=== PATIENT | female | born 1960 ===

== ENCOUNTER 2018-11-22 05:16 | Inpatient (IN) | payer MEDICAID ==
[2018-11-15 10:02] LABS: APPEARANCE,URINE CLEAR; BILIRUBIN, URINE NEGATIVE (NEGATIVE); COLOR,URINE PALE YELLOW; GLUCOSE, URINE (UA) NEGATIVE (NEGATIVE); KETONES,URINE NEGATIVE (NEGATIVE); LEUKOCYTE ESTERASE ,URINE NEGATIVE (NEGATIVE); NITRITE,URINE NEGATIVE (NEGATIVE); PH,URINE 6 (4.5-8.0); PROTEIN,URINE NEGATIVE (NEGATIVE); UROBILINOGEN,URINE NORMAL MG/DL (0.0-1.0)
[2018-11-15 10:07] LABS: BASOPHILS % (AUTO) 0.9 % (0.0-2.0); EOSINOPHILS % (AUTO) 1.5 % (0.0-3.0); HEMATOCRIT 42.8 % (37.0-47.0); HEMOGLOBIN 13.8 G/DL (12.0-16.0); LYMPHOCYTES % (AUTO) 35.3 % (20.0-45.0); MEAN CORPUSCULAR VOLUME 93 FL (80-99); MONOCYTES % (AUTO) 5.5 % (1.0-10.0); NEUTROPHILS % (AUTO) 56.8 % (45.0-75.0); PLATELET COUNT 322 K/UL (150-450); RED CELL DISTRIBUTION WIDTH 11.8 % (11.6-14.8)
[2018-11-15 10:11] LABS: INR 0.9 (0.9-1.1)
[2018-11-15 10:36] LABS: ANION GAP 9 mmol/L (5-15); BLOOD UREA NITROGEN 10 mg/dL (7-18); CALCIUM 9.2 MG/DL (8.5-10.1); CARBON DIOXIDE 29 MMOL/L (21-32); CHLORIDE 104 MMOL/L (98-107); CREATININE 0.8 MG/DL (0.55-1.30); POTASSIUM 4.3 MMOL/L (3.5-5.1); SODIUM 142 MMOL/L (136-145)
--- NOTE | 2018-11-15 11:44 | Diagnostic Imaging Report ---
Indication: Cough Technique: 2 views of the chest Comparison: None Findings: Lungs and pleural spaces are clear. The heart size is normal. The bones are unremarkable. Impression: Negative
--- NOTE | 2018-11-18 16:45 | Pre-op HX & Phy Repo 2 SIG ---
DATE OF ADMISSION: 11/22/2018 DATE OF PLANNED SURGERY: Scheduled for surgery on 11/22/2018. HISTORY OF PRESENT ILLNESS: The patient is a 58-year-old female in overall good health with invasive ductal carcinoma of the right breast. The patient presented recently with a recent onset of a right breast mass. She has no prior history of breast disease and no family history of breast cancer. Mammogram and ultrasound revealed a suspicious irregular mass at 10 o'clock approximately 13 cm from the nipple measuring 1.6 x 1.2 x 1.7 cm. Core biopsy revealed invasive ductal carcinoma, poorly differentiated. She is triple negative; estrogen receptor, progesterone receptor and HER2 negative. Ki-67 was high at 65%. The patient underwent oncology consultation, who recommended proceeding with surgery and determining the need for subsequent treatment based on final pathology. The patient is scheduled to undergo right breast partial mastectomy and right axillary lymph node biopsy. MEDICATIONS: Metoprolol 25 mg daily. ALLERGIES: None. OPERATIONS: None. REVIEW OF SYSTEMS: 1, para 1. Last menstrual period 2015. PHYSICAL EXAMINATION: GENERAL: The patient is 5 feet 5 inches, 212 pounds. VITAL SIGNS: Within normal limits. HEENT: Within normal limits. LUNGS: Clear. HEART: Regular rhythm. BREASTS: Large and ptotic. Right breast, in the very periphery of the upper outer quadrant, there is a 2 cm hard mass not fixed to the chest wall. The left breast is unremarkable. There is no palpable axillary or supraclavicular lymphadenopathy. ABDOMEN: Soft. PELVIC AND RECTAL: Per primary care. EXTREMITIES: Without edema. NEUROLOGIC: Physiologic. IMPRESSION: Invasive ductal carcinoma, right breast. PLAN: Right breast partial mastectomy and right axillary lymph node biopsy. I have had a full discussion with the patient regarding the nature of condition, the nature of the surgery, indications, alternatives, options, and risks including bleeding, infection, need for additional surgery or subsequent treatments with chemotherapy or radiation or hormonal based on final pathology, scarring and distortion of the breast or nipple, etc. All questions have been answered. The patient understands and agrees to proceed. Gómez Masters M.D. DR: BLAS JOB#: [id number] CC:
--- NOTE | 2018-11-20 15:18 | Cardiology Report ---
APPROVED REPORT EKG Measurement Heart [id number] NM [id number] Sinus bradycardia Right bundle branch block Abnormal ECG
[2018-11-22] VITALS (15 sets, daily range): BP systolic 133–153; BP diastolic 62–88
[~2018-11-22] VITALS: Ht 157.5 cm; Wt 94.8 kg
[2018-11-22] MEDS ORDERED: METOPROLOL TART25 MG ORAL (06:01)
[2018-11-22] MEDS ORDERED: Midazolam 2mg/2ml Inj ONE (07:11)
[2018-11-22] MEDS ORDERED: fentaNYL 100 mcg/2 mL IV ONE (07:11)
[2018-11-22] MEDS ORDERED: Propofol 200mg/20ml IV ONE ×2 (07:12→09:05)
[2018-11-22] MEDS ORDERED: Lidocaine 1% MPF 10mg/ml 5ml ONE (07:12)
[2018-11-22] MEDS ORDERED: Lidocaine 1% 10mg/ml/Epi 0.005mg/ml 30ml vial INJ ONE (07:16)
[2018-11-22] MEDS ORDERED: Bacitracin 50000 Units Vial ONE (07:16)
[2018-11-22] MEDS ORDERED: Bupivacaine w/Epi 0.5% 30ml Vial INJ ONE (07:16)
[2018-11-22] MEDS ORDERED: Bupivacaine 0.5% Inj 30 ml vial INJ ONE (07:16)
[2018-11-22] MEDS ORDERED: Succinylcholine 20mg/ml 10ml vial ONE (07:20)
[2018-11-22] MEDS ORDERED: Zemuron 50mg/5ml Inj IV ONE (07:20)
--- NOTE | 2018-11-22 07:22 | Pre-Procedure Note/Attestation ---
Pre-Procedure Note/Attestation Complete Prior to Procedure Planned Procedure: right Procedure Narrative: re-excision carcinoma right breast and right axillary lymph node biopsy Indications for Procedure Pre-Operative Diagnosis: invasive ductal carcinoma right breast Attestation I attest that I discussed the nature of the procedure; its benefits; risks and complications; and alternatives (and the risks and benefits of such alternatives ), prior to the procedure, with the patient (or the patient's legal associate financial representative). I attest that, if there was a reasonable possibility of needing a blood transfusion, the patient (or the patient's legal associate financial representative) was given the [facility] standardized written summary, pursuant to the Silverio Magnus Blood Safety Act ([place] Health and Safety Code # 1645, as amended). I attest that I re-evaluated the patient just prior to the surgery and that there has been no change in the patient's H&P, except as documented below:none Gómez Masters MD Nov 22, 2018 07:22
[2018-11-22] MEDS ORDERED: NS Irrig 1000ml IRRIG ONE (08:18)
[2018-11-22] MEDS ORDERED: LR 1000ml 1,000 ML IVLG SCH (08:27)
--- NOTE | 2018-11-22 08:27 | Anethesia Preoperative Eval ---
Anesthesia Pre-op PMH/ROS General Date of Evaluation: Nov 22, 2018 Time of Evaluation: 07:12 Anesthesiologist: Luann ASA Score: ASA 2 Mallampati Score Class I : Soft palate, uvula, fauces, pillars visible Class II: Soft palate, uvula, fauces visible Class III: Soft palate, base of uvula visible Class IV: Only hard plate visible Mallampati Classification: Class II Surgeon: Sonam Diagnosis: R breast CA Surgical Procedure: Partial mastectomy Anesthesia History: none Family History: no anesthesia problems Allergies: Coded Allergies: IBUPROFEN (Verified Allergy, Severe, 11/22/18) skin rash,vomiting Medications: see eMAR Patient NPO?: Yes NPO Date: Nov 21, 2018 NPO Time: 2129 Past Medical History Cardiovascular: Reports: HTN; Denies: CAD, CA, valve dz, arrhythmia, other Pulmonary: Denies: asthma, COPD, AFSHIN, other Gastrointestinal/Genitourinary: Reports: GERD; Denies: CRI, ESRD, other Neurologic/Psychiatric: Reports: depression/anxiety; Denies: dementia, CVA, TIA, other Endocrine: Denies: DM, hypothyroidism, steroids, other HEENT: Denies: cataract (L), cataract (R), glaucoma, [place] (L), [place] (R), other Hematology/Immune: Denies: anemia, DVT, bleeding disorder, other Musculoskeletal/Integumentary: Denies: OA, RA, DJD, DDD, edema, other Other: obesity PMH Narrative: as above PSxH Narrative: Abdominoplasty Anesthesia Pre-op Phys. Exam Physician Exam Last Vital Signs Date Time Temp Pulse Resp B/P (MAP) Pulse Ox O2 Delivery O2 Flow Rate FiO2 11/22/18 06:01 98.0 62 20 145/62 (89) 95 11/22/18 05:57 Room Air Constitutional: NAD Neurologic: CN 2-12 intact Cardiovascular: RRR, no M/R/G Respiratory: CTA Gastrointestinal: other - obesity Airway Exam Mallampati Score: Class II MO: full Neck: flexible ROM: full Teeth: intact Dentures: no upper, no lower Anesthesia Pre-op A/P Labs see chart Studies Pre-op Studies: EKG - NSR Risk Assessment & Plan Assessment: ASA 2 Plan: GA with ETT Pre-Antibiotics Drug: Ancef 2gr. Given Within 1 Hr of Incision: Yes Time Given: 08:14 Dima Kong MD Nov 22, 2018 08:27
[2018-11-22] MEDS ORDERED: Meperidine 50mg/ml Inj(FOR RIGORS ONLY) IV PRN (08:30)
[2018-11-22] MEDS ORDERED: Metoclopramide 10mg/2ml Inj IVP PRN (08:30)
[2018-11-22] MEDS ORDERED: Ketorolac 30mg Inj IV PRN (08:30)
[2018-11-22] MEDS ORDERED: Hydromorphone 0.5mg/0.5ml inj IVP PRN (08:30)
[2018-11-22] MEDS ORDERED: DiphenhydrAMINE 50mg/ml Inj IVP PRN (08:30)
[2018-11-22] MEDS ORDERED: Morphine Sulfate 10mg/ml Inj ONE (08:30)
[2018-11-22] MEDS ORDERED: Glycopyrrolate 0.2mg/ml 1ml Vial ONE (08:31)
[2018-11-22] MEDS ORDERED: Sodium Chloride 10ml vial INJ ONE ×2 (08:31→08:45)
[2018-11-22] MEDS ORDERED: ePHEDrine 50mg/ml Inj ONE (08:45)
[2018-11-22] MEDS ORDERED: HYDROmorphone 1mg/ml Carpuject SUBQ PRN (09:15)
[2018-11-22] MEDS ORDERED: HYDROcodone/Acetamin 5/325 tab ORAL PRN (09:15)
--- NOTE | 2018-11-22 09:23 | Brief Operative Note ---
Immediate Post Operative Note Operative Note Pre-op Diagnosis: invasive ductal carcinoma right breast Procedure: right breast partial mastectomy and right axillary lymph node biopsy Post-op Diagnosis: same Post-op Diagnosis: same as pre-op Findings: consistent w/pre-op dx studies Surgeon: cathy Anesthesiologist: karen Anesthesia: general Specimen: yes - right breast cancer, right axillary lymph nodes Complications: none Condition: stable Fluids: see anesthesia record Estimated Blood Loss: volume - 10cc Drains: DANNA Implant(s) used?: No Gómez Masters MD Nov 22, 2018 09:23
--- NOTE | 2018-11-22 09:36 | Immediate Post-Op Evaluation ---
Immediate Post-Op Evalulation Immediate Post-Op Evalulation Procedure: R breast partial mastectomy with axillary l/n dissection Date of Evaluation: Nov 22, 2018 Time of Evaluation: 09:35 IV Fluids: 1000 Blood Products: none Estimated Blood Loss: 50 Urinary Output: none Blood Pressure Systolic: 146 Blood Pressure Diastolic: 76 Pulse Rate: 68 Respiratory Rate: 20 O2 Sat by Pulse Oximetry: 98 Temperature (Fahrenheit): 97.6 Pain Score (1-10): 2 Nausea: No Vomiting: No Complications none Patient Status: reacts, patent, extubated, none Hydration Status: adequate Dima Kong MD Nov 22, 2018 09:36
--- NOTE | 2018-11-22 10:35 | NUR ---
NURSE NOTES: Patient came to the unit. Received report from Edith Boyd, GRAPHIC MANAGER. Pt is a/o x 4, in bed, Beninese speaking, daughter is at bedside. No respiratory distress noted. Denies any pain at this time. Rt breast surgical dressing is C/D/I. DANNA drain is in place on right site. Rt foot IV is patent. Unit orientation was given. Questions answered. Bed in lowest position, call light within reach. Will continue to monitor.
--- NOTE | 2018-11-22 11:15 | Operative Note - Dictated ---
DATE OF OPERATION: 11/22/2018 SURGEON: Gómez Masters M.D. COOPER APPRENTICE: None. ANESTHESIOLOGIST: Dima Kong M.D. TYPE OF ANESTHESIA: General. PREOPERATIVE DIAGNOSIS: Invasive ductal carcinoma, right breast. POSTOPERATIVE DIAGNOSIS: Invasive ductal carcinoma, right breast. OPERATION PERFORMED: Right breast partial mastectomy and right axillary lymph node biopsy. DESCRIPTION OF PROCEDURE: The patient was taken to the operating room and under general anesthesia with sequential compression device stockings in place, she was prepped and draped in the usual fashion. The approximate 2 cm carcinoma mass was located in the very periphery of the upper outer quadrant at 10 o'clock. A radial incision was made achieving hemostasis with cautery. Flaps were dissected circumferentially. A wide excision was performed orienting the specimen with sutures anterior, superior, and medial. The lesion was right at the axillary tail and axilla and two lymph glands were removed with the specimen confirmed by pathology to confirm clear margins. Palpation revealed another abnormal axillary lymph node, which I resected using the Thunderbeat electrosurgical device without making a separate axillary skin incision. Hemostasis was carefully achieved. The field was irrigated through a stab incision inferiorly, a large Wilson-Tabares drain was placed into the axilla and sutured the skin with 2-0 nylon skin suture. The axilla and breast romero were irrigated and hemostasis was secured with cautery. The incision was closed with interrupted 3-0 Vicryl deep dermal subcutaneous sutures followed by continuous 4-0 Monocryl subcuticular suture. Mastisol and half-inch Steri-Strips were applied followed by dry sterile dressing. Final sponge and needle counts were correct. The patient tolerated the procedure well and left the operating room in good condition. Gómez Masters M.D. DR: JENNIFER JOB#: [id number] CC:
--- NOTE | 2018-11-22 11:25 | NUR ---
NURSE NOTES: Patient ambulated with assistance to go to bathroom. Pt urinated. Pt in stable condition.
[2018-11-22] MEDS: D5 1/2NS w/KCl 20mEq 1,000 ML IV SCH ×2 (13:49→21:12)
--- NOTE | 2018-11-22 13:50 | NUR ---
NURSE NOTES: Instruction for caring of DANNA drain was given to pt/daughter. Verbalized understanding.
--- NOTE | 2018-11-22 17:00 | NUR ---
NURSE NOTES: Pt wants to get ensure. Dr. Masters was notified and ordered okay to have ensure.
--- NOTE | 2018-11-22 18:10 | NUR ---
NURSE NOTES: Instruction for taking care of DANNA drain was given to pt again. Patient demonstrated properly. Measuring cups were given.
--- NOTE | 2018-11-22 19:30 | NUR ---
NURSE NOTES: Received handoff report from AM RN. Patient R foot IV site is patent. Right axillary dressing is C/D/I. Right mitchel draining to gravity. VSS. Patient c/o pain and prn paid meds given per eMAR order.
--- NOTE | 2018-11-22 19:33 | NUR ---
HAND-OFF: Report given to NIA Perez. Pt in stable condition.
[2018-11-22] MEDS: Metoprolol 25mg tab ORAL SCH (21:00)
[2018-11-23] VITALS: BP 135/74
[2018-11-23 04:00] VITALS: BP 110/63
[2018-11-23] MEDS ORDERED: Neostigmine 1mg/ml 10ml Inj ONE (07:00)
[2018-11-23] MEDS ORDERED: LR 1000ml ONE (07:00)
[2018-11-23] MEDS ORDERED: Sterile Water Irrig 1000ml IRRIG ONE (07:00)
--- NOTE | 2018-11-23 07:43 | NUR ---
NURSE NOTES: Received report from Chris RN and NIA Jean Baptiste. The patient is resting on the bed without acute distress or shortness of breath. The patient's bed in the lowest position, call light in reach, and fall and aspiration precaution reinforced. Intact and patent IV. Patent DANNA drain and minimal drainage noted. Dressing on right breast area is intact. Will continue plan of care.
[2018-11-23 08:00] VITALS: BP 127/74
[2018-11-23] MEDS: Metoprolol 25mg tab ORAL SCH (09:12)
--- NOTE | 2018-11-23 10:04 | General Progress Note ---
Progress Note Progress Note AVSS Doing well with po [place] right breast incision clean with intact steristrips. DANNA 5cc serosang from axillary lymph node biopsy Imp. Stable Plan: discharge with DANNA drain instructions/limitations/supplies provided/discussed Rx [place] #30 f/u office 11/29 Gómez Masters MD Nov 23, 2018 10:04
--- NOTE | 2018-11-23 10:07 | NUR ---
NURSE NOTES: Notified Dr. Masters regarding mild grade fever upto 99.3F. Per Dr. Masters, no new order at this time. Dr. Masters ordered discharge. Will carry out the order.
[2018-11-23] MEDS ORDERED: NORCO 5-325 TA1 EACH ORAL ×2 (10:42→10:43)
[2018-11-23] MEDS ORDERED: HYDROCODON-ACE1 EA15 ORAL (10:43)
--- NOTE | 2018-11-23 11:13 | NUR ---
NURSE NOTES: The patient got safely discharged back to home with Ele, the patient's daughter's assistance. The patient denies of acute distress or shortness of breath. The patient's vital signs were stable. Dr. Masters ordered discharge back to home with DANNA drainage. Follow up appointment with Dr. Masters is scheduled on 11/29/2018. Removed IV and nameband. Discharge instruction and teaching provided and signed by the patient. Prescription given by Dr. Masters. The patient's belongings checked with the patient and signed by the patient. The patient got discharged with Ele's assistance in a safe manner in a stable condition. Addendum: 11/23/18 at 1138 by Lito Chacko RN Surgical dressing was clean, dry, and intact upon discharge. Dr. Masters changed the dressing again right before the patient got discharged. No signs or symptoms of active bleeding, redness, swelling, or discomfort. Addendum: 11/23/18 at 1139 by Lito Chacko RN Skin is intact other than surgical wound.
[2018-11-23 11:41] VITALS: BP 128/76
--- NOTE | 2018-11-23 11:41 | 48 Hour Post Anesthesia Eval ---
Post Anesthesia Evaluation Procedure: R breast partial mastectomy with axillary l/n dissection Date of Evaluation: Nov 23, 2018 Time of Evaluation: 09:10 Blood Pressure Systolic: 128 0: 76 Pulse Rate: 72 Respiratory Rate: 20 Temperature (Fahrenheit): 97.6 O2 Sat by Pulse Oximetry: 98 Airway: patent Nausea: No Vomiting: No Pain Intensity: 2 Hydration Status: adequate Cardiopulmonary Status: stable Mental Status/LOC: patient returned to baseline Follow-up Care/Observations: n/a Post-Anesthesia Complications: none Follow-up care needed: ready to discharge Dima Kong MD Nov 23, 2018 11:41
--- NOTE | 2018-11-24 10:48 | Discharge Summary ---
Discharge Summary Hospital Course Date of Admission Nov 22, 2018 at 11:24 Date of Discharge Nov 23, 2018 at 11:05 Admitting Diagnosis Invasive ductal carcinoma, right breast. Reason for Hospitalization: Elective surgery MAXIMINO Odonnell is a 58 year old female who was admitted on Nov 22, 2018 at 11:24 for Invasive ductal carcinoma, right breast. Patient was admitted for elective surgery. Procedures s/p 11/22/[address] Masters Right breast partial mastectomy and right axillary lymph node biopsy. Hospital Course status post surgery course of recovery uneventful initially IV fluids pain management addressed ; pain controlled right breast incision clean with intact Steri-Strips DANNA drain with minimal amount of serosanguineous drainage from axillary lymph node biopsy patient was taught how to care for DANNA drain hemodynamically stable ambulated voided without difficulties tolerated diet , IV fluids discontinued antiemetics were on board as needed discharge instructions, limitations, supplies provided and discussed prescription for [place] provided patient to follow-up in the office on 11/28/2018 FINAL DIAGNOSES Invasive ductal carcinoma, right breast. s/p Right breast partial mastectomy and right axillary lymph node biopsy. Discharge Medications Continued Medications: Hydrocodone/Acetaminophen 5-325* (Hydrocodone/Acetaminophen 5-325*) 1 Each Tablet 1 TAB ORAL Q4H PRN for For Pain, #30 TAB 0 Refills (This prescription has been renewed) Metoprolol Tartrate* (Metoprolol Tartrate*) 25 Mg Tablet 25 MG ORAL EVERY 12 HOURS, TAB (This prescription has been renewed) Discontinued Medications: Hydrocodone Bit/Acetaminophen 5-325* ([place] 5-325*) 1 Each Tablet 1 TAB ORAL Q4H PRN for For Pain, #30 TAB 0 Refills Hydrocodone Bit/Acetaminophen 5-325* ([place] 5-325*) 1 Each Tablet 1 TAB ORAL Q4H PRN for For Pain, #30 TAB 0 Refills Discharge Condition Upon Discharge: stable Discharge Disposition Patient was discharged home Discharge Instructions Discharge Instructions Special Instructions I have been assigned to complete a D/C Summary on this account. I was not involved in the patient management Vaishali Cates NP Nov 24, 2018 10:47
== END 2018-11-23 11:05 | disposition home or self-care (01) | DRG 363 ==
LOC: SUR 05:16 → 3E 11:24
PROC: 07B50ZX Excision of Right Axillary Lymphatic, Open Approach, Diagnostic (ICD-10-PCS; 2018-11-22)
PROC: 0HBT0ZZ Excision of Right Breast, Open Approach (ICD-10-PCS; principal; 2018-11-22 07:30)
DX: C50.411 Malignant neoplasm of upper-outer quadrant of right female breast (principal); Z17.1 Estrogen receptor negative status [ER-]
CPT/HCPCS: 36415; 71046; 80048; 81003; 85025; 85610; 85730; 87081; 93005; 94003; 94150; J2250; J2405; J2710